=== PATIENT | male | born 1975 | race Two or more races ===

== ENCOUNTER 2022-01-18 06:11 | Observation (INO) ==
--- NOTE | 2021-12-28 16:07 | PAT Medication Instructions ---
Medication Instructions Date of Service December 28, 2021 Home Medications omeprazole 20 mg delayed release,disintegrating tablet 20 mg PO QAM trazodone 50 mg tablet 50 mg PO HS Take morning of surgery With a small sip of water, OTHERWISE NOTHING TO EAT OR DRINK AFTER MIDNIGHT: omeprazole 20 mg delayed release,disintegrating tablet 20 mg PO QAM Take evening before surgery trazodone 50 mg tablet 50 mg PO HS Other Notes If you have any questions please call us at [phone] or [phone] or [phone] or [phone]
--- NOTE | 2022-01-04 09:12 | Anesthesiology Consultation ---
Date of Service January 04, 2022 Assessment & Plan (1) Encounter for pre-operative examination: COVID screening: Per assessment on 01/04: No known COVID-19 positive contacts or current COVID-19 related symptoms. Travel screen negative. Patient vaccinated. At surgeon discretion if preop Covid testing being done. Chart Review Chart Review: Acceptable Risk for Surgery and Patient seen in Pre Admission Testing Teaching & Discussion Pre-Anesthesia Teaching/Discussion Notes: Instructed NPO after midnight before surgery,except medications with 15 cc of water. Medication instructions provided according to the PAT guidelines. History Surgery Operation Date: 01/18/22 12:25 Proposed Procedures p C5-C7 Anterior Cervical Discectomy and Fusion, Spinal Cord Monitoring - Juan Luis Canales, Height/Weight Height: 5 ft 8 in Weight: 82.5 kg Allergies Allergy/AdvReac Type Severity Reaction Status Date / Time No Known Drug Allergies Allergy Verified 12/28/21 14:34 Medications Home Medications Medication Instructions Recorded Confirmed Last Taken omeprazole 20 mg delayed 20 mg PO QAM 12/28/21 12/28/21 Unknown release,disintegrating tablet trazodone 50 mg tablet 50 mg PO HS 12/28/21 12/28/21 Unknown Past Medical History Medical History GERD (gastroesophageal reflux disease) History of neck pain Right arm pain and numbness Exercise / Class Metabolic Activity II 4-5 Yardwork/Stairs/Walk up hill Past Surgical History Surgical History History of esophagogastroduodenoscopy (EGD) Hx of arthroscopy of left knee Hx of colonoscopy Hx of LASIK Hx of undescended testicle Repair (age 7) Past Anesthesia History No Hx of Anesthesia Complications and No Family Hx of Anesthesia Complications History of PONV No Hx of PONV and No Hx of Motion Sickness Social History Smoking Status: Never smoker Do You Dip or Chew Tobacco: No Hx Alcohol Use: Yes Alcohol type: beer alcohol intake frequency: holidays/special occasions only Hx Substance Use: No substance use type: does not use Review of Systems Patient denies chest pain, shortness of breath, dyspnea on exertion, fever, chills, cough, wheezing, palpitations. Physical Exam Vital Signs VITALS BP 136/84 P 69 TEMP 98.4 SP02 100%RA RESP 16 PHYSICAL Significantly decreased cervical extension range of motion. Full TMJ range of motion. TMD 3 finger breaths Mallampati Score 3 Dentition: intact Lungs: clear throughout to auscultation Cardiac: regular rate and rhythm, no murmurs noted Spine: normal Extremities: no edema Lab Results Anesthesia Preop Results Results Anesthesia Widget: WBC 5.93 K/ul (4.8-10.8) 01/04/22 Hgb 14.6 g/dl (14.0-18.0) 01/04/22 Hct 42.4 % (40.1-51.0) 01/04/22 Plt 233 K/uL (130-400) 01/04/22 Na 141 mmol/L (136-145) 01/04/22 K 4.6 mmol/L (3.5-5.1) 01/04/22 Cl 103 mmol/L (98-107) 01/04/22 CO2 31 mmol/L (21-32) 01/04/22 BUN 15 mg/dl (6-23) 01/04/22 Creat 1.09 mg/dl (0.6-1.4) 01/04/22 Glucose Level 84 mg/dl (70-99(Fasting)) 01/04/22 PT 10.3 Seconds (9.0-12.0) 01/04/22 PTT 26.5 Seconds (21.0-31.0) 01/04/22 INR 1.0 (0.9-1.1) 01/04/22 Urine Color Yellow 01/04/22 Urine Appearance Clear (Clear) 01/04/22 Urine pH 6.5 (4.5-7.5) 01/04/22 Urine Specific [place] 1.016 (1.000-1.030) 01/04/22 Urine Protein Negative (Negative) 01/04/22 Urine Glucose (UA) Negative (Negative) 01/04/22 Urine Ketones Negative (Negative) 01/04/22 Urine Blood Negative (Negative) 01/04/22 Urine Nitrite Negative (Negative) 01/04/22 Urine Bilirubin Negative (Negative) 01/04/22 Urine Urobilinogen Negative (Negative) 01/04/22 Urine Leukocyte Esterase Negative (Negative) 01/04/22 Blood Type A Negative 01/04/22 Antibody Screen NEGATIVE 01/04/22 Testing Electrocardiogram Date: 01/04/22 NSR at 66bpm. Rightward axis. Chest X-Ray Date: 01/04/22 Findings: + NAD COVID-19 Risk Screen Screening Information COVID-19 Screen Date: 01/04/22 Exposure 21 Days Family/Household +COVID Last 21 Days: No Exposure 10 Days Any COVID Exposure Last 10 Days: No Symptoms Last 10 Days Experienced COVID Sx Last 10 Days: No + COVID 0-90 Days COVID + in Last 0-90 Days: No
[~2022-01-18 06:11] MED LIST: ACETAMINOPHEN 500 MG TAB PO SCH; CeleBREX 200 MG CAP PO SCH; GABAPENTIN 900 MG DOSE PO SCH; LR 15ML/HR IV SCH; ceFAZolin 2000MG 2,000 MG/15 ML SYR IV SCH
[2022-01-18] MEDS ORDERED: ATROPINE SULFATE 0.1 MG/ML 10ML SYR IV PRN (07:04)
[2022-01-18] MEDS ORDERED: ONDANSETRON INJ 2 MG/ML 2 ML VIAL IV PRN ×2 (07:04→11:43)
[2022-01-18] MEDS ORDERED: DROPERIDOL 5 MG/2 ML VIAL IV PRN (07:05)
[2022-01-18] MEDS ORDERED: REMIFENTANIL HCL 1 MG VIAL ONE (07:05)
[2022-01-18] MEDS ORDERED: SUGAMMADEX SODIUM 200 MG/2 ML VIAL IV ONE (07:05)
[2022-01-18] MEDS ORDERED: PROPOFOL IV EMULSION 10 MG/ML 20 ML VIAL IV ONE (07:06)
[2022-01-18] MEDS ORDERED: LIDOCAINE 2% MPF LOCAL 5 ML VIAL INFIL ONE (07:07)
[2022-01-18] MEDS ORDERED: DEXAMETHASONE SOD INJ 4 MG/ML VIAL ONE ×2 (07:08→08:13)
[2022-01-18] MEDS ORDERED: ONDANSETRON INJ 2 MG/ML 2 ML VIAL ONE ×2 (07:08→09:30)
[2022-01-18] MEDS ORDERED: SUCCINYLCHOLINE CHLORIDE 20 MG/ML 10 ML VIAL IV ONE (07:09)
[2022-01-18] MEDS ORDERED: ROCURONIUM BROMIDE 10 MG/ML 5 ML VIAL IV ONE ×5 (07:11)
[2022-01-18] MEDS ORDERED: PROPOFOL IV EMULSION 10 MG/ML 100 ML VIAL IV ONE (07:16)
[2022-01-18] MEDS ORDERED: ceFAZolin 330 MG/ML 1 GM VIAL ONE (07:16)
[2022-01-18] MEDS ORDERED: MIDAZOLAM HCL 1 MG/ML 2ML VIAL ONE (07:17)
[2022-01-18] MEDS ORDERED: fentaNYL citrate 100 MCG/2 ML VIAL ONE (07:17)
--- NOTE | 2022-01-18 07:34 | History & Physical Bridge Note ---
Date of Service January 18, 2022 History & Physical Bridge Note I have examined the patient, reviewed the History & Physical and in the interval since the performance of the History & Physical I have noted the following changes of clinical significance: no changes noted
--- NOTE | 2022-01-18 07:35 | History & Physical Report ---
Date of Service January 18, 2022 Assessment & Plan (1) Herniation of cervical intervertebral disc with radiculopathy: Plan: C5-C7 anterior cervical discectomy and fusion, cervical C6 corpectomy History of Present Illness Chief Complaint: Neck and arm pain Primary Care Provider: Corey Guan DO This is a 46-year-old male presents with progressive neck and arm symptoms with failed course of nonoperative care is here for surgical invention. Allergies Allergy/AdvReac Type Severity Reaction Status Date / Time No Known Drug Allergies Allergy Verified 01/18/22 06:26 Home Medications Medication Instructions Recorded Confirmed Type omeprazole 20 mg delayed 20 mg PO QAM 12/28/21 01/18/22 History release,disintegrating tablet trazodone 50 mg tablet 50 mg PO HS 12/28/21 01/18/22 History Past Med/Surg History Medical History GERD (gastroesophageal reflux disease) History of neck pain Right arm pain and numbness Surgical History History of esophagogastroduodenoscopy (EGD) Hx of arthroscopy of left knee Hx of colonoscopy Hx of LASIK Hx of undescended testicle Repair (age 7) Social History Smoking Status: Never smoker Second Hand Exposure: No; Do You Dip or Chew Tobacco: No; Tobacco Cessation Education Requested by Patient: No Hx Alcohol Use: Yes Alcohol type: beer Hx Substance Use: No Preferred Language: Portuguese Communication Ability: Effective Veneer Patcher Required: No Beliefs That Will Affect Care: None Current Living Situation: Spouse and Family Other Information That Helps Us Care for You: No Feels Safe at Home: Yes Safety Concerns: Feels Safe At This Time Assistive Devices: Glasses Assistive Devices Comment: reading Physical Exam Physical Exam: Patient is alert and oriented Heart regular rhythm Lungs clear Results & Data Results & Data ([facility]) Vital Signs (Past 12 Hours) Vital Signs Temp Pulse Resp BP Pulse Ox O2 Del Method 01/18/22 06:28 36.5 C 60 20 127/82 98 Room Air
[2022-01-18] MEDS ORDERED: KETAMINE 50 MG/5 ML SYRINGE ONE (08:01)
[2022-01-18] MEDS ORDERED: ePHEDrine sulfate 50 MG/ML AMP ONE (08:35)
[2022-01-18] MEDS ORDERED: HYDROmorphone INJ 2 MG/ML SYR/VIAL ONE (09:03)
[2022-01-18] MEDS ORDERED: FLOSEAL HEMOSTATIC MATRIX 10ML TOP ONE (09:22)
--- NOTE | 2022-01-18 09:26 | Operative Report ---
Post Operative Report Pre & Post Diagnosis Operation Date: 01/18/22 07:45 Pre-Op Diagnosis: Spinal Stenosis, Cervical Region Post-Op Diagnosis: Spinal Stenosis, Cervical Region I identified the patient and participated in the time-out.: Yes Procedure Operation Date: 01/18/22 07:45 Actual Procedures #1 anterior cervical corpectomy with bilateral foraminotomies C6. #2 anterior cervical arthrodesis C5-C7. #3 placement of 23 mm peek cage C5-C7. #4 placement locally harvested morselized autograft combined with I factor in the interbody cage. #5 application of kenny plate and screws from C5-C7. Surgeon Juan Luis Canales, [employer] Specialist Iza Solis Estimated Blood Loss 50 Findings Consistent with Post-Op Diagnosis Specimens None Indications This is a 46-year-old male presents with above-mentioned diagnosis after failed course of nonoperative care is here for surgical invention. Description of Procedure Patient was met with identified informed consent obtained. Patient was then taken to the operative suite underwent a patient placed in supine position the Osei table head Rojas training and development head. All bony prominences well-padded eyes inspected to ensure no external pressure placed upon the. This point the anterior cervical spine was prepped and draped no sterile fashion. With the assistance of fluoroscopy identify the C6 vertebral body and a transverse incision was placed on the right anterior aspect of the cervical spine overlying his region. Blunt dissection with the assistance of bipolar electrocautery performed down to expose the anterior cervical spine from C5-C7. A self- retaining retractors placed. Then performed a complete discectomy of C5-C6 out to the uncovertebral joints bilaterally followed by C6-C7. [place] distracting pins were then placed in C5 and C7 distract across the C6 vertebral body. A complete corpectomy was then performed including bilateral foraminotomies addressing all spinal stenosis. Endplates were then burred to subcortical bleeding bone and a 23 mm peek cage filled with I factor and locally harvested morselized autograft tapped in position. Distracting apparatus was removed and 5 complete and screws applied with the assistance of fluoroscopy. The incision was then copiously irrigated explored to ensure no damage to surrounding structures or remaining bleeding. 10 round KOBY drain inserted. The incision was then closed with 2 Vicryl in the fascia and a 4 Monocryl for final skin closure. Steri-Strip sterile dressings placed. Patient waken taken PACU stable condition. Please note spinal cord monitoring was utilized at the procedure no changes noted. Lastly Iza Solis was present at the entire surgery and while the patient positioning complex portions of the surgery and final skin closure. I attest to the content of the Intraoperative Record and any orders documented therein. Any exceptions are noted below.
[2022-01-18] MEDS ORDERED: ALUMINUM/MAGNESIUM SUSP 30 ML UDC PO PRN (11:43)
[2022-01-18] MEDS ORDERED: diphenhydrAMINE Capsule 25 MG CAP PO PRN (11:43)
[2022-01-18] MEDS ORDERED: oxyCODONE HCL IR 5 MG TAB (IMMEDIATE RELEASE) PO PRN (11:43)
[2022-01-18] MEDS ORDERED: ONDANSETRON 4 MG OD TAB PO PRN (11:43)
[2022-01-18] MEDS ORDERED: traMADol HCL 50 MG TABLET PO PRN (11:43)
[2022-01-18] MEDS ORDERED: METOCLOPRAMIDE HCL INJ 5 MG/ML 2 ML VIAL IV PRN (11:43)
[2022-01-18] MEDS ORDERED: LORazepam 0.5 MG in SYRINGE 0.25 ML IV PRN (11:43)
[2022-01-18] MEDS ORDERED: ACETAMINOPHEN 500 MG TAB PO PRN (11:43)
[2022-01-18] MEDS ORDERED: MAGNESIUM HYDROXIDE SUSP 30 ML UDC PO PRN (11:43)
[2022-01-18] MEDS ORDERED: hydrOXYzine HCl 25 MG TAB PO PRN (11:43)
[2022-01-18] MEDS ORDERED: FAMOTIDINE 20 MG TAB PO PRN (11:43)
[2022-01-18] MEDS ORDERED: HYDROmorphone INJ 0.5 MG/0.5 ML SYR IV PRN (11:43)
[2022-01-18] MEDS ORDERED: dexAMETHasone 8 MG in SYRINGE 0 ML IV PRN (11:43)
[2022-01-18] MEDS ORDERED: RACEPINEPHRINE 2.25% NEBU SOLN 0.5 ML VIAL INH PRN (11:43)
[2022-01-18] MEDS ORDERED: NALOXONE HCL 0.4 MG/1 ML VIAL/CARP IV PRN (11:43)
[2022-01-18] MEDS ORDERED: ACETAMINOPHEN 1,000 MG/100 ML VIAL IV PRN (11:43)
[2022-01-18] MEDS ORDERED: PROMETHAZINE HCL 12.5 MG in SODIUM CHLORIDE 0.9% 50 ML IV PRN (11:43)
[2022-01-18] MEDS ORDERED: SOD PHOSPHATE/SOD BIPHOSPHATE ENEMA 132 ML BTL PR PRN (11:43)
[2022-01-18] MEDS ORDERED: LORazepam 0.5 MG TAB PO PRN (11:43)
[2022-01-18] MEDS ORDERED: bisacodyL 10 MG SUPP PR PRN (11:43)
[2022-01-18] MEDS: HYDROmorphone INJ 1 MG/ML SYRINGE IV PRN ×6 (12:18→19:31)
--- NOTE | 2022-01-18 13:04 | Anesthesiology Progress Note ---
Date of Service January 18, 2022 Anesthesia Post Procedure Vital Signs Vital Signs: Temp Pulse Pulse Resp BP Pulse Ox O2 Del Method 01/18/22 12:40 96 H 17 136/86 94 Room Air 01/18/22 12:10 93 H 18 119/80 94 Room Air 01/18/22 11:40 87 17 137/86 95 Room Air 01/18/22 11:10 78 15 133/91 98 Room Air 01/18/22 11:00 36.4 C L 77 15 143/81 H 95 Room Air 01/18/22 10:50 78 15 132/88 96 Room Air 01/18/22 10:40 77 13 132/87 96 Room Air 01/18/22 10:30 73 13 134/97 99 Room Air 01/18/22 10:20 68 16 129/89 100 Oxymask 01/18/22 10:10 78 15 132/88 100 Oxymask 01/18/22 10:00 68 17 139/91 100 Oxymask 01/18/22 09:54 36.4 C L 78 22 140/82 100 Oxymask 01/18/22 06:28 36.5 C 60 20 127/82 98 Room Air O2 Flow Rate 01/18/22 12:40 01/18/22 12:10 01/18/22 11:40 01/18/22 11:10 01/18/22 11:00 01/18/22 10:50 01/18/22 10:40 01/18/22 10:30 01/18/22 10:20 4 01/18/22 10:10 7 01/18/22 10:00 7 01/18/22 09:54 7 01/18/22 06:28 Pain Intensity Right Shoulder: Pain Intensity: 4 Bilateral Neck: Pain Intensity: 3 Transfer of Care Handoff Completed per policy Notes Mental Status: alert / awake / arousable Patient Amnestic to Procedure: Yes Nausea / Vomiting: adequately controlled Pain: adequately controlled Airway Patency, RR, SpO2: stable & adequate BP & HR: stable & adequate Hydration State: stable & adequate Anesthetic Complications: no major complications apparent
--- NOTE | 2022-01-18 13:05 | Fluoroscopy Report ---
FL cervical 2-3V CLINICAL HISTORY: ACDF C5-7 C6 CORPECTOMY COMPARISON STUDY: None. FLUOROSCOPY TIME: 10 seconds. FLUOROSCOPIC IMAGES: 2 FINDINGS: Fluoroscopy was provided during C6 corpectomy with C5-C7 anterior discectomy and fusion. [place] rgical drain is in place. Endotracheal tube is partially imaged. IMPRESSION: Fluoroscopy provided during C6 corpectomy and C5-C7 anterior discectomy and fusion. ACT 112: Negative or not required by law. Electronically signed by: aJren Fierro M.D. 01/18/2022 1:04 PM
[2022-01-18] MEDS: LACTATED RINGER'S 1,000 ML IV SCH ×2 (14:53→23:18)
[2022-01-18] MEDS: ceFAZolin 2000MG 2,000 MG/15 ML SYR IV SCH ×2 (16:40→23:51)
[2022-01-18] MEDS ORDERED: traZODone HCL 50 MG TAB PO SCH (21:00)
[2022-01-18] MEDS ORDERED: DOCUSATE SODIUM/SENNA 50/8.6MG TAB PO SCH (21:00)
[2022-01-18] MEDS ORDERED: Nursing to Pharmacy Communication SCH (23:45)
[2022-01-19] MEDS: POLYETHYLENE (MIRALAX) 17 GM PACK PO SCH ×2 (05:34→13:19)
--- NOTE | 2022-01-19 08:34 | Discharge Summary ---
Date of Service January 19, 2022 Admission HPI Per Admitting Provider This is a 46-year-old male presents with progressive neck and arm symptoms with failed course of nonoperative care is here for surgical invention. Admission Exam (Per Admitting) Constitutional WD/WN, vitals as above Eyes normal visual barroso by confrontation ENMT external ear and nose normal, oropharynx normal Neck normal visual inspection Respiratory normal respiratory effort Cardiovascular Extremities: normal capillary refill Gastrointestinal (Abdomen) Inspection/Auscultation: abdomen normal to inspection Musculoskeletal Head/Neck/Chest: + limited ROM of neck Extremities: extremities normal to inspection Skin no rashes, warm and dry Neurologic normal touch/pain/proprioception and moves all extremities Psychiatric A+Ox3, euthymic affect Eye Contact: good eye contact Speech: normal rate/rhythm/volume of speech Discharge Data Procedures Performed Operation Date: 01/18/22 07:45 Actual Procedures p C5-C7 Anterior Cervical Discectomy and Fusion, C6 Corpectomy, Spinal Cord Monitoring(Not Applicable) - Juan Luis Canales DO Hospital Course (1) Herniation of cervical intervertebral disc with radiculopathy: Discharge Instructions Patient is being discharged home on postoperative day 1 status post C6 corpectomy. He is doing well. He has had an uneventful hospital course. He is up and ambulatory and using the restroom.
[2022-01-19] MEDS ORDERED: PANTOprazole 40 MG TAB PO SCH (09:00)
== END 2022-01-19 13:30 | disposition home or self-care (01) | DRG 473 ==
LOC: ASU 06:11 → PACUINP 09:29 → INTOOBSV 09:29 → 3E 14:26